=== PATIENT | male | born 1945 | race Caucasian/White ===

== ENCOUNTER 2017-01-13 05:52 | Inpatient (IN) | payer MEDICARE, OTHER ==
[2017-01-10 11:00] LABS: BASOPHILS 0.2 %; BASOPHILS ABSOLUTE 0.01 10/3/uL (0.0-0.16); EOSINOPHILS 1.5 %; EOSINOPHILS ABSOLUTE 0.07 10/3/uL (0.0-0.53); HEMATOCRIT 42.6 % (40.0-51.0); HEMOGLOBIN 14.2 g/dL (13.6-17.8); LYMPHOCYTES 38.4 %; LYMPHOCYTES ABSOLUTE 1.84 10/3/uL (0.67-4.30); MEAN CORPUS HGB CONC 33.3 g/dL (32.0-36.0); MEAN CORPUSCULAR HEMOGLOB 29.3 pg (26.0-34.0); MEAN PLATELET VOLUME 9.4 fL (9.2-13.0); MONOCYTES 7.5 %; MONOCYTES ABSOLUTE 0.36 10/3/uL (0.21-1.20); NEUTROPHILS 52.4 %; NEUTROPHILS ABSOLUTE 2.51 10/3/uL (2.02-8.40); PLATELET COUNT 145 10/3/uL (150-400); RBC DISTRIBUTION WIDTH 13.7 % (12.0-16.0); RED CELL COUNT 4.84 10/6/uL (4.7-6.1); WHITE BLOOD CELLS 4.8 10/3/uL (4.5-10.5)
[2017-01-10 11:07] LABS: MANUAL DIFF NO %
[2017-01-10 11:11] LABS: PROTIME (NOT ORD) 13.4 SEC (12.0-14.5)
[2017-01-10 11:12] LABS: CALCIUM, SERUM 8.9 MG/DL (8.5-10.4); CHLORIDE, SERUM 114 MMOL/L (96-112); CO2 (CARBON DIOXIDE) 23 MMOL/L (24-34); CREATININE 2.13 MG/DL (0.70-1.30); GFR AFRICAN AMERICAN 35 ML/MIN (>=60); GFR NON AFRICAN AMERICAN 30 ML/MIN (>=60); GLUCOSE, SERUM 147 MG/DL (60-99); POTASSIUM, SERUM 4.5 MMOL/L (3.5-5.3); SODIUM, SERUM 145 MMOL/L (135-148)
[2017-01-10 11:13] LABS: BUN (BLOOD UREA NITROGEN) 40 MG/DL (6-23)
[2017-01-10 11:40] LABS: ASCORBIC ACID (UR NOT ORDER) NEG (NEG); BILIRUBIN, URINE NEGATIVE (NEG); KETONE, URINE NEGATIVE (NEG); LEUKOCYTE ESTERASE(NOT OR NEG (NEG); WBC (NOT ORDERED) (RFLEX) < 1 (0-5)
--- NOTE | ~2017-01-13 | OP ---
Record Of Operation [facility] [address] [place]. [address] NAME: DANIEL BALDERRAMA JUNIOR : [birth year] STATUS : ADM IN [facility]#: [id number] AGE: 71 ADM/REG DATE : 01/13/17 MR#: [id number] REPORT SERV DATE: 01/13/17 DICTATED BY: DONAL SUMMERS DATE: 01/13/17 REPORT STATUS : Draft TRANSCRIBED BY: MODL DATE: 01/13/17 DATE OF PROCEDURE: 01/13/2017 PREOPERATIVE DIAGNOSES: 1. Mediastinal lymphadenopathy, level 5L lymph node. 2. Status post left upper lobectomy for lung cancer. 3. Hypertension. 4. Peripheral vascular disease with history of abdominal aortic aneurysm. POSTOPERATIVE DIAGNOSES: 1. Mediastinal lymphadenopathy, level 5L lymph node. 2. Status post left upper lobectomy for lung cancer. 3. Hypertension. 4. Peripheral vascular disease with history of abdominal aortic aneurysm. PROCEDURE PERFORMED: Left mediastinotomy with sampling of level 5L lymph node tissue. SURGEON: Donal Summers M.D. LITIGATION DOCKET MANAGER: Joseline Zuñiga. ANESTHESIA: General. INDICATIONS: This is a 71-year-old gentleman, who underwent left upper lobectomy in 2015. He has had stage IIA adenocarcinoma of the lung. He did undergo postoperative chemotherapy and is followed by Dr. Rodriguez at [place]. He has had two areas in his lung with increased gross of these lesions on the right lower lobe and left lung. In addition, the level 5 AP window node had increased in size and had increased uptake on PET scan. The patient also had increased uptake on PET scan of multiple bony lesions. He had undergone needle biopsies of these bony areas that had increased uptake and these were non-diagnostic. We were asked to perform mediastinotomy for biopsy level 5L lymph node area to ascertain for recurrence. This was discussed with the patient's and wished to proceed. FINDINGS AT OPERATION: 1. There was very firm hard tissue in the region of 5L. 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 In addition, phrenic nerve was adjacent to it and made sampling of the tissue there very difficult and challenging to avoid injury to these two structures. 2. Frozen section of some of the tissue was negative for malignancy. DESCRIPTION OF PROCEDURE: The patient was brought to the operating suite. General anesthesia was induced. Airway was secured with a dual lumen endotracheal tube. Lines were secured by Anesthesia. The left chest was prepped with Hibiclens and ChloraPrep and draped with Ioban and sterile sheets. A mediastinotomy incision was made at the second intercostal space below the clavicle, and carried through subcutaneous tissue, and down to the Record Of Operation [address] [address] NAME: DANIEL BALDERRAMA JUNIOR : [birth year] STATUS : ADM IN PAT#: [id number] AGE: 71 ADM/REG DATE : 01/13/17 MR#: [id number] REPORT SERV DATE: 01/13/17 DICTATED BY: DONAL SUMMERS DATE: 01/13/17 REPORT STATUS : Draft TRANSCRIBED BY: JAODN DATE: 01/13/17 pectoralis muscle which was split in the course of its fibers. The intercostal musculature was divided, and we encountered the left internal mammary artery and vein, and these structures were clipped and divided. Then, the pericardium of the heart was observed and there was no significant adhesions of the lung tissue to this area. At this point, we placed a second stab wound, one intercostal space above this and lateral in the midclavicular line, and placed the trocar to this to allow us to place the scope in the chest for visualization. Mediastinal scope was then placed in the chest and this helped to examine the area. We followed the aortic arch around and the pulmonary artery or hilum of the lung was noted, cradled by the arch of the aorta. Unfortunately, the pulmonary artery stump from his first operation and was embedded in his scar tissue of question on CT scan, and you could actually see the staple line of the stump. The phrenic nerve was identified and this came to rest near this confluence of tissue also. The tissue was able to be digitally palpated with the oakes machine operator's finger and was very hard or firm in texture. We then used several mediastinoscopy biopsy rongeurs to remove some of the tissue. A portion of the tissue was sent for frozen section that was negative for malignancy. After biopsies of these areas, I felt that continuing on with further exploration or more aggressive biopsies would place the pulmonary artery remnant or the phrenic nerve in jeopardy. I did not want to do this. Therefore, chest was irrigated with sterile water and saline. Hemostasis was obtained. A 24 Trevon tube was placed through the thoracoscopic port site and brought out through the skin and secured to it. Then, the mediastinotomy incision was closed in layers of absorbable suture and skin was closed in subcuticular fashion. The patient tolerated the procedure well. There were no complications. Sponge and needle counts were correct. DISPOSITION: The patient was extubated and taken to recovery room in stable condition. GAVIN/JADON Donal Summers M.D. / [id number] CC: Umang Mead MD
[~2017-01-13 05:52] MED LIST: ACCUNEB INH; ACET500CAP PO; ADVAIR115P INH; BENEMID500 PO; BUDEPRION100 MG PO; COMBIVENT RESPIM4 GM INH; COZ50 PO; CYMBALTA20 PO; FISH-EPA1000 MG PO; GERITOL PO; GLUCOTRO10 PO; IMOD PO; INDE60 PO; INHALER; LIPITOR20 PO; LIPITOR80 MG PO; LIQUID TEARS OPH; LYSINE1000 MG PO; METROLOTION0.75 % TOP; MINIPRESS 2 MG C2 MG OR; PRILO PO; PROMEGA PO; PROSCAR5 PO; PROVENTSOL INH; SINGULAIR1 PO; SODBICAR10 PO; TRAZ100 PO; ULTRAM50 PO; UREA 20% EX; VITAMIN D31000 UNIT PO; VITE1000 PO; ZESTRIL20 MG PO; [UNRECOGNIZED DRUG - OTHER] UR
[2017-01-14 05:14] LABS: BASOPHILS 0.1 %; BASOPHILS ABSOLUTE 0.01 10/3/uL (0.0-0.16); EOSINOPHILS 0.8 %; EOSINOPHILS ABSOLUTE 0.06 10/3/uL (0.0-0.53); HEMATOCRIT 38.9 % (40.0-51.0); HEMOGLOBIN 12.5 g/dL (13.6-17.8); LYMPHOCYTES 14.8 %; LYMPHOCYTES ABSOLUTE 1.08 10/3/uL (0.67-4.30); MEAN CORPUS HGB CONC 32.1 g/dL (32.0-36.0); MEAN CORPUSCULAR HEMOGLOB 28.9 pg (26.0-34.0); MEAN CORPUSCULAR VOLUME 89.8 fL (80-100); MEAN PLATELET VOLUME 9.6 fL (9.2-13.0); MONOCYTES 8.1 %; MONOCYTES ABSOLUTE 0.59 10/3/uL (0.21-1.20); NEUTROPHILS 76.2 %; NEUTROPHILS ABSOLUTE 5.58 10/3/uL (2.02-8.40); PLATELET COUNT 131 10/3/uL (150-400); RBC DISTRIBUTION WIDTH 13.8 % (12.0-16.0); RED CELL COUNT 4.33 10/6/uL (4.7-6.1)
[2017-01-14 05:22] LABS: MANUAL DIFF NO %; WHITE BLOOD CELLS 7.3 10/3/uL (4.5-10.5)
[2017-01-14 05:34] LABS: CALCIUM, SERUM 8.3 MG/DL (8.5-10.4); CHLORIDE, SERUM 110 MMOL/L (96-112); CO2 (CARBON DIOXIDE) 24 MMOL/L (24-34); CREATININE 2.02 MG/DL (0.70-1.30); GFR AFRICAN AMERICAN 37 ML/MIN (>=60); GFR NON AFRICAN AMERICAN 32 ML/MIN (>=60); GLUCOSE, SERUM 171 MG/DL (60-99); POTASSIUM, SERUM 4.6 MMOL/L (3.5-5.3); SODIUM, SERUM 143 MMOL/L (135-148)
[2017-01-14 05:37] LABS: BUN (BLOOD UREA NITROGEN) 32 MG/DL (6-23)
[2017-01-15] MEDS ORDERED: ULTRAM50 PO (12:49)
[2017-01-15] MEDS ORDERED: FLOMAX4 PO (12:50)
== END 2017-01-15 15:28 | disposition home or self-care (01) | DRG 803 ==
LOC: SDC/OF 05:52 → PACU 10:53 → 5NO 12:57
PROVIDERS: Thoracic Surgery (Cardiothoracic Vascular Surgery)
PROC: 07B70ZX Excision of Thorax Lymphatic, Open Approach, Diagnostic (ICD-10-PCS; principal; 2017-01-13 07:45)
DX: R59.1 Generalized enlarged lymph nodes (principal); N18.4 Chronic kidney disease, stage 4 (severe); J44.9 Chronic obstructive pulmonary disease, unspecified; E11.22 Type 2 diabetes mellitus with diabetic chronic kidney disease; I73.9 Peripheral vascular disease, unspecified; Z85.118 Personal history of other malignant neoplasm of bronchus and lung; I71.4 Abdominal aortic aneurysm, without rupture; R33.9 Retention of urine, unspecified; I12.9 Hypertensive chronic kidney disease with stage 1 through stage 4 chronic kidney disease, or unspecified chronic kidney disease; Z87.891 Personal history of nicotine dependence
CPT/HCPCS: 36415; 71010; 71020; 80048; 81001; 82962; 85025; 85610; 86850; 86900; 86901; 86920; 88112; 88305; 88331; 88341; 88342; 88344; 93005; 94640; A9270-GY; J0690; J1170; J2250; J2370; J2405; J2710; J2795; J3010; P9045